=== PATIENT | male | born 1985 | race Caucasian/White ===

== ENCOUNTER 2018-07-11 06:44 | Day surgery (SDC) | payer OTHER, BC ==
--- NOTE | 2018-07-11 07:33 | PCM.PREANE ---
Preanesthetic Assessment - Procedure Proposed Procedure: LEFT leg lesion excision and scar revision - Anesthesia/Transfusion/Family Hx Anesthesia History: No Prior Anesthesia (no history of anesthesia, no previous surgeries or procedures.) Family History of Anesthesia Reaction: No Transfusion History: No Prior Transfusion(s) - Review of Systems General: No Symptoms (obese) Pulmonary: No Symptoms (quit smoking 2011) Cardiovascular: No Symptoms Gastrointestinal: No Symptoms (rare gerd--maybe once a month-uses tums) Neurological: No Symptoms Other: Reports: None - Physical Assessment NPO Status Date: 07/11/18 NPO Status Time: 00:00 Pulse: 69 O2 Sat by Pulse Oximetry: 93 Respiratory Rate: 16 Blood Pressure: 117/59 Temperature: 36.7 C Height: 1.83 m Weight: 109.769 kg ASA Class: 2 Mental Status: Alert & Oriented x3 Airway Class: Mallampati = 1 Dentition: Reports: Normal Dentition Thyro-Mental Finger Breadths: 2 Mouth Opening Finger Breadths: 3 ROM/Head Extension: Full Lungs: Clear to Auscultation, Normal Respiratory Effort Cardiovascular: Regular Rate, Regular Rhythm, No Murmurs - Lab Values: 2016 cbc and cmp were WNL - Allergies Allergies/Adverse Reactions: Allergies Allergy/AdvReac Type Severity Reaction Status Date / Time amoxicillin Allergy Hives Verified 07/05/18 09:16 - Blood Blood Available: No Product(s) Available: None - Acknowledgements Anesthesia Type Planned: General Anesthesia (GA with LMA vs ETT) Pt an Appropriate Candidate for the Planned Anesthesia: Yes Alternatives and Risks of Anesthesia Discussed w Pt/Guardian: Yes Pt/Guardian Understands and Agrees with Anesthesia Plan: Yes PreAnesthesia Questionnaire - Past Health History Medical/Surgical History: Denies Medical/Surgical History HEENT History: Reports: Other (See Below) Other HEENT History: wears contacts Gastrointestinal History: Reports: GERD Musculoskeletal History: Reports: Fracture Other Musculoskeletal History: hx fx hand Psychiatric History: Reports: None Endocrine/Metabolic History: Reports: Obesity/BMI 30+ - Infectious Disease History Infectious Disease History: Reports: Chicken Pox - Past Surgical History Head Surgeries/Procedures: Reports: None - SUBSTANCE USE Smoking Status *Q: Former Smoker Recreational Drug Use History: No - HOME MEDS Home Medications: Home Meds Calcium Carbonate [Tums] 1 tab.chew CHEW ASDIRECTED PRN 07/05/18 [History] - CURRENT (IN HOUSE) MEDS Current Meds: Current Medications Hydrocodone Bitart/Acetaminophen ([place] 325-5 Mg) 1 tab PO Q4H PRN PRN Reason: Pain Bupivacaine HCl/Epinephrine Bitart (Marcaine 0.25%/Epinephrine 1:200,000) 10 ml INJECT ONETIME ONE Stop: 07/11/18 08:01 Clindamycin Phosphate 600 mg/ (Premix) 50 mls @ 150 mls/hr IV ONETIME ONE Stop: 07/11/18 08:19 Last Admin: 07/11/18 07:15 Dose: 150 mls/hr Lactated Ringer's (Ringers, Lactated) 1,000 mls @ 125 mls/hr IV ASDIRECTED [facility] Last Admin: 07/11/18 07:15 Dose: 125 mls/hr
[2018-07-11] MEDS ORDERED: fentaNYL 100 MCG/2 ML SDV ONE (07:39)
[2018-07-11] MEDS ORDERED: Midazolam 1 MG/ML 2 ML SDV ONE (07:39)
[2018-07-11] MEDS ORDERED: Propofol 200 MG/20 ML SDV ONE (07:39)
[2018-07-11] MEDS ORDERED: Lidocaine 2% 5 ML SDV ONE (07:39)
[2018-07-11] MEDS ORDERED: HYDROmorphone 2 MG/ML Syringe ONE (07:39)
[2018-07-11] MEDS ORDERED: Ondansetron 4 MG/2 ML SDV ONE (07:39)
[2018-07-11] MEDS ORDERED: Bupivacaine 25%/EPINEPHrine/PF 30 ML ONE (07:55)
[2018-07-11] MEDS ORDERED: Clindamycin Phosphate in D5W 600 MG in Premix Bag 1 BAG IV ONE ×2 (08:00)
[2018-07-11] MEDS ORDERED: Lactated Ringers 1,000 ML IV SCH (08:00)
[2018-07-11] MEDS ORDERED: Acetaminophen/HYDROcodone 325-5 MG Tab PO PRN (08:00)
[2018-07-11] MEDS ORDERED: Bupivacaine 0.25%/EPINEPHrine 1:200,000 10 ML SDV INJECT ONE (08:00)
[2018-07-11] MEDS ORDERED: fentaNYL 100 MCG/2 ML SDV IVPUSH PRN (08:55)
--- NOTE | 2018-07-11 09:59 | PCM.POSTAN ---
POST ANESTHESIA ASSESSMENT - MENTAL STATUS Mental Status: Alert, Oriented, Somnolent - VITAL SIGNS Pulse Rate: 86 SaO2: 97 Resp Rate: 18 Blood Pressure: 115/47 Temperature: 36.6 C - RESPIRATORY Respiratory Status: Respiratory Rate WNL, Airway Patent, O2 Saturation Stable - CARDIOVASCULAR CV Status: Pulse Rate WNL, Blood Pressure Stable - GASTROINTESTINAL GI Status: No Symptoms - PAIN Pain Score: 6 (tolerable) - POST OP HYDRATION Hydration Status: Adequate & Stable - OBSERVATIONS Free Text/Narrative:: doing well in pacu.
--- NOTE | 2018-07-11 11:33 | PCM48HPAN ---
Post Anesthesia Note - EVALUATION WITHIN 48HRS OF ANESTHETIC Vital Signs in Normal Range: Yes Patient Participated in Evaluation: Yes Respiratory Function Stable: Yes Airway Patent: Yes Cardiovascular Function Stable: Yes Hydration Status Stable: Yes Pain Control Satisfactory: Yes Nausea and Vomiting Control Satisfactory: Yes Pulse Rate: 86 SaO2: 98 Resp Rate: 18 Temperature: 36.6 C Blood Pressure: 115/47 - COMMENTS/OBSERVATIONS Free Text/Narrative:: awake, alert, vitals stable. Eatingand drinking. Doing very well. Ready to go home
[2018-07-11 13:39] VITALS: BP 118/62
--- NOTE | 2018-07-17 07:57 | PCM.OPNOTE ---
- General Post-Op/Procedure Note Date of Surgery/Procedure: 07/11/18 Operative Procedure(s): excision of left leg fat necrosis and scar tissue with evacuation of seroma/old hematoma - total area of excision is 6cm2 Pre Op Diagnosis: left leg traumatic injury sequelae with fat necrosis and scar tissue tethering Post-Op Diagnosis: Same Anesthesia Technique: General ET Tube, Local Primary Surgeon: Cherise Bautista Statistical Geneticist: Lisa Zambrano Drain/Tube Comments:: flat VINNIE in left leg Complications: None Condition: Good Free Text/Narrative:: [id number]
--- NOTE | 2018-07-17 13:53 | OR ---
SURGEON: NESTOR MCCLAIN MD DATE OF PROCEDURE: 07/11/2018 PREOPERATIVE DIAGNOSIS: Left leg traumatic injury sequelae with fat necrosis and scar tissue tethering the muscle. POSTOPERATIVE DIAGNOSIS: Left leg traumatic injury sequelae with fat necrosis and scar tissue tethering the muscle. PROCEDURE: Excision of left leg fat necrosis and release of fat and muscle scar tissue with an activation of an old seroma/hematoma. Total area of excision was 6 cm2. PICKER: BASIL Vasquez REASON FOR AND ROLE OF PICKER: Retraction, prepping, draping, positioning and closure assistance. ANESTHESIA: General ET tube with local. INDICATIONS: Mr. Bruno is a 32-year-old gentleman who unfortunately had a left leg traumatic injury over a year ago at work with unfortunate sequelae of significant fat necrosis with scar tethering to the underlying musculature and chronic irritation here. Risks and benefits of release of the scar tissue attached to the muscle and evacuation or removal of any remaining necrotic or nonviable tissue were discussed with him and he was in agreement to proceed. Risks were including, but not limited to, bleeding, infection, damage to underlying or overlying structures, possible need for future interventions, possible scarring. PROCEDURE IN DETAIL: After informed consent was obtained and placed on the chart, the patient was brought to the operating theater and laid in supine position. The patient was placed in the right lateral decubitus position with a bump under the left thigh, and the area was prepped and draped in normal fashion using ChloraPrep cleansing solution. A transverse incision was made over the area of maximum tethering, and dissection was carried through the skin and subcutaneous tissues to the muscle layer and the muscle was then freed from the overlying fat necrosis and scar tissue. A significant amount of fluid within the old seroma/hematoma was evacuated here and the remainder of the previous scar tissue was completed. This was copiously irrigated and the overlying fat necrosis was then excised for a total area of 6 cm2. Once adequately excised, the edges were appreciated to abruptly end and thus a liposuction cannula was used to see if it is needed for appropriate contour. Once this was adequately debrided and local anesthetic had been infiltrated into the area prior to the liposuction for hemostasis and pain control, the area was copiously irrigated and meticulous hemostasis was obtained. A size 7 VINNIE drain was placed into the wound and brought out the incision itself and sutured in place using a 3-0 Prolene. Once this was completed, a 2-0 PDS Stratafix suture was used to close the deep fascial layer and a 3-0 Monocryl was used to close the deep dermis and the skin in a running fashion with Stratafix suture as well. The wound was dressed with the Steri- Strips and ABD as well as a small compression to close the space and an Rivas wrap. The patient tolerated this well and all counts and needles were correct at the end of the case. FOLLOWUP INSTRUCTIONS: The patient will see us next week once his compression garment has arrived and we will also plan for removal of the VINNIE drain in about 5 to 7 days. In the meantime, he will be on pain control and antibiotics while the drain is in place. Discharge instructions provided. RUDDY FELDMAN /[id number]
== END 2018-07-11 12:35 | disposition home or self-care (01) ==
LOC: MW.SDS 06:44
PROVIDERS: ATTEND Plastic Surgery
DX: M62.89 Other specified disorders of muscle (principal); T14.90XS Injury, unspecified, sequela; M79.89 Other specified soft tissue disorders; E66.9 Obesity, unspecified; Z68.32 Body mass index [BMI] 32.0-32.9, adult; K21.9 Gastro-esophageal reflux disease without esophagitis; Z87.891 Personal history of nicotine dependence; X58.XXXS Exposure to other specified factors, sequela; Z88.0 Allergy status to penicillin; Z88.1 Allergy status to other antibiotic agents
CPT/HCPCS: 10140; 11043; 88304; 99283; A9270; J1170; J2250; J2405; J2704; J3010; J3490; J7120; 00400; 99282

== ENCOUNTER 2018-07-11 17:42 | Emergency (ER) | payer OTHER, BC ==
--- NOTE | 2018-07-11 17:51 | EDM.PDOC ---
ED HPI GENERAL MEDICAL PROBLEM - General Stated Complaint: PORT FROM TODAY'S SURGERY ISN'T DRAINING Time Seen by Provider: 07/11/18 17:43 Source of Information: Reports: Patient History Limitations: Reports: No Limitations - History of Present Illness INITIAL COMMENTS - FREE TEXT/NARRATIVE: History of present illness: []Patient had an excision of fat necrosis and scar tissue from his left leg today by Dr. Bautista. A drain was placed and he comes into the ER stating that his drain is not draining. Review of systems: As per history of present illness and below otherwise all systems reviewed and negative. Past medical history: As per history of present illness and as reviewed below otherwise noncontributory. Surgical history: As per history of present illness and as reviewed below otherwise noncontributory. Social history: No reported history of drug or alcohol abuse. Family history: As per history of present illness and as reviewed below otherwise noncontributory. Physical exam: General: Well developed, well nourished in NAD HEENT: Atraumatic, normocephalic, pupils reactive, negative for conjunctival pallor or scleral icterus, mucous membranes moist, throat clear, neck supple, nontender, trachea midline. Lungs: Clear to auscultation, breath sounds equal bilaterally, chest nontender. Heart: S1S2, regular, negative for clicks, rubs, or JVD. Abdomen: NABS, Soft, nondistended, nontender. Negative for masses or hepatosplenomegaly. Negative for costovertebral tenderness. Pelvis: Stable nontender. Genitourinary: Deferred. Rectal: Deferred. Extremities: Left lateral thigh with drain in place dressing intact and was not taken down there's not excessive amount of blood on the dressing and it is dry. The bulb suction was not compressed. negative for cords or calf pain. Neurovascular unremarkable. Neuro: Awake, alert, oriented. Cranial nerves II through XII unremarkable. Cerebellum unremarkable. Motor and sensory unremarkable throughout. Exam nonfocal. Skin:warm and dry Diagnostics: None Therapeutics: Suction created in the bulb ED Course: Unremarkable Impression: Wound check postoperative Prescriptions: None Plan: Follow-up with Dr. Bautista tomorrow Definitive disposition and diagnosis as appropriate pending reevaluation and review of above. Left Hip Pain Score (Numeric/FACES): 6 - Related Data Allergies Allergy/AdvReac Type Severity Reaction Status Date / Time amoxicillin Allergy Hives Verified 07/11/18 18:08 Home Meds: Home Meds Calcium Carbonate [Tums] 1 tab.chew CHEW ASDIRECTED PRN 07/05/18 [History] Acetaminophen/HYDROcodone [[place] 325-5 MG] 1 tab PO Q4H PRN #30 tablet 07/11/18 [Rx] Past Medical History - Past Health History Medical/Surgical History: Denies Medical/Surgical History HEENT History: Reports: Other (See Below) Other HEENT History: wears contacts Gastrointestinal History: Reports: GERD Musculoskeletal History: Reports: Fracture Other Musculoskeletal History: hx fx hand Psychiatric History: Reports: None Endocrine/Metabolic History: Reports: Obesity/BMI 30+ - Infectious Disease History Infectious Disease History: Reports: Chicken Pox - Past Surgical History Head Surgeries/Procedures: Reports: None Social & Family History - Family History Family Medical History: Noncontributory - Caffeine Use Caffeine Use: Reports: Coffee, Soda, Tea, Other Other Caffeine Use: preworkout ED ROS GENERAL - Review of Systems Review Of Systems: ROS reveals no pertinent complaints other than HPI. ED EXAM, SKIN/RASH Exam: See Below (See history of present illness) Course - Vital Signs Last Recorded V/S: Last Vital Signs Temp 97.2 F 07/11/18 18:05 Pulse 75 07/11/18 18:05 Resp 18 07/11/18 18:05 BP 122/68 07/11/18 18:05 Pulse Ox 98 07/11/18 18:05 Departure - Departure Time of Disposition: 18:16 Disposition: Home, Self-Care 01 Condition: Good Clinical Impression: Encounter for postoperative wound check - Discharge Information *PRESCRIPTION DRUG MONITORING PROGRAM REVIEWED*: No *COPY OF PRESCRIPTION DRUG MONITORING REPORT IN PATIENT KELLY: No Referrals: PCP,None [Primary Care Provider] - Additional Instructions: The following information is given to patients seen in the emergency department who are being discharged to home. This information is to outline your options for follow-up care. We provide all patients seen in our emergency department with a follow-up referral. The need for follow-up, as well as the timing and circumstances, are variable depending upon the specifics of your emergency department visit. If you don't have a primary care physician on staff, we will provide you with a referral. We always advise you to contact your personal physician following an emergency department visit to inform them of the circumstance of the visit and for follow-up with them and/or the need for any referrals to a consulting specialist. The emergency department will also refer you to a specialist when appropriate. This referral assures that you have the opportunity for follow-up care with a specialist. All of these measure are taken in an effort to provide you with optimal care, which includes your follow-up. Under all circumstances we always encourage you to contact your private physician who remains a resource for coordinating your care. When calling for follow-up care, please make the office aware that this follow-up is from your recent emergency room visit. If for any reason you are refused follow-up, please contact the [facility] Emergency Department at and asked to speak to the emergency department charge nurse. [facility] - [facility] Professional Building [address] [place] [address], [address] [place] [address]
[2018-07-11 18:15] VITALS: BP 122/68
== END 2018-07-11 18:36 | disposition home or self-care (01) ==
LOC: MW.ED 17:42
DX: Z48.00 Encounter for change or removal of nonsurgical wound dressing (principal); Z88.1 Allergy status to other antibiotic agents; E66.9 Obesity, unspecified
CPT/HCPCS: 99283

== ENCOUNTER 2018-12-01 16:57 | Emergency (ER) | payer BC, OTHER ==
--- NOTE | 2018-12-01 16:59 | EDM.PDOC ---
ED HPI GENERAL MEDICAL PROBLEM - General Stated Complaint: NECK PAIN Time Seen by Provider: 12/01/18 16:58 Source of Information: Reports: Patient History Limitations: Reports: No Limitations - History of Present Illness INITIAL COMMENTS - FREE TEXT/NARRATIVE: HISTORY AND PHYSICAL: History of present illness: Patient is a 33-year-old male who presents to the emergency room with complaints of muscular neck pain. He states yesterday he was moving heavy furniture and was lifting it up over his head. This morning he woke up with neck stiffness and pain with range of motion. He denies any injury, trauma or falls. Denies any numbness, tingling or saddle paresthesias of the distal extremities. Patient denies any fever, chills, headache, change in vision, syncope or near syncope. Denies any chest pain, back pain, shortness of breath or cough. Denies any abdominal pain, nausea, vomiting, diarrhea, constipation or dysuria. Has not noted any blood in urine or stool. Patient has been eating and drinking appropriately. Review of systems: As per history of present illness and below otherwise all systems reviewed and negative. Past medical history: As per history of present illness and as reviewed below otherwise noncontributory. Surgical history: As per history of present illness and as reviewed below otherwise noncontributory. Social history: See social history for further information Family history: As per history of present illness and as reviewed below otherwise noncontributory. Physical exam: General: Well-developed and well-nourished 30-year-old male. Alert and oriented. Nontoxic appearing and in no acute distress. HEENT: Atraumatic, normocephalic, pupils equal and reactive bilaterally, negative for conjunctival pallor or scleral icterus, mucous membranes moist, TMs normal bilaterally, throat clear, neck supple, nontender, trachea midline. No drooling or trismus noted. No meningeal signs. No hot potato voice noted. Lungs: Clear to auscultation, breath sounds equal bilaterally, chest nontender. Heart: S1S2, regular rate and rhythm without overt murmur Abdomen: Soft, nondistended, nontender. Skin: Intact, warm, dry. No lesions or rashes noted. Extremities: Atraumatic, moves all extremities per self without difficulty or deficits, negative for cords or calf pain. Neurovascular unremarkable. C-spine/Back: No pinpoint vertebral tenderness upon palpation. No crepitus, step -offs or obvious deformities. She does have some paraspinous muscular tenderness into the trapezius bilaterally. Patient is ambulatory into the emergency room without any difficulty or deficits. Denies any urinary or fecal incontinence. Neuro: Awake, alert, oriented. Cranial nerves II through XII unremarkable. Cerebellum unremarkable. Motor and sensory unremarkable throughout. Exam nonfocal. Notes: X-ray shows loss of the normal cervical lordosis which be secondary muscle spasm. No acute bone abnormality seen. Findings were shared with patient. He states he did not get much relief with the IM Toradol and Norflex. One time oral dose of [place] given now. Prescription for Flexeril diclofenac, medication education was reviewed and discussed. Supportive care measures were reviewed and discussed. Voices understanding and is agreeable to plan of care. Denies any further questions or concerns at this time. Diagnostics: C-spine x-ray Therapeutics: Toradol, Norflex, [place] Prescription: Flexeril Diclofenac Impression: Muscle spasm, neck Plan: 1. The medication he received as an injection today does cause drowsiness so do not drive for the remaining day 2. May alternate heat and ice to the painful area. Gentle stretching. 3. Tylenol as needed for back pain. Otherwise take the prescribed Flexeril and diclofenac as directed. Diclofenac is an anti-inflammatory so do not take any additional NSAIDs with this medication, such as ibuprofen or Aleve. Flexeril as a muscle relaxant, this medication may cause drowsiness a do not take it will driving her needing to be functioning outside of the house. 4. Please follow-up with your primary care provider as we discussed. Return to the ED as needed and as discussed. Definitive disposition and diagnosis as appropriate pending reevaluation and review of above. neck Pain Score (Numeric/FACES): 7 - Related Data Allergies Allergy/AdvReac Type Severity Reaction Status Date / Time amoxicillin Allergy Hives Verified 07/11/18 18:08 Home Meds: Home Meds Gabapentin [Neurontin] 100 mg PO BID 12/01/18 [History] Past Medical History - Past Health History Medical/Surgical History: Denies Medical/Surgical History HEENT History: Reports: Other (See Below) Other HEENT History: wears contacts Gastrointestinal History: Reports: GERD Musculoskeletal History: Reports: Fracture Other Musculoskeletal History: hx fx hand Psychiatric History: Reports: None Endocrine/Metabolic History: Reports: Obesity/BMI 30+ - Infectious Disease History Infectious Disease History: Reports: Chicken Pox - Past Surgical History Head Surgeries/Procedures: Reports: None Social & Family History - Family History Family Medical History: Noncontributory - Caffeine Use Caffeine Use: Reports: Coffee, Soda, Tea, Other Other Caffeine Use: preworkout ED ROS GENERAL - Review of Systems Review Of Systems: ROS reveals no pertinent complaints other than HPI. ED EXAM, UPPER BACK/NECK PAIN - Physical Exam Exam: See Below (See dictation) Course - Vital Signs Last Recorded V/S: Last Vital Signs Temp 97 F 12/01/18 17:05 Pulse 88 12/01/18 17:05 Resp 20 12/01/18 17:05 BP 153/83 H 12/01/18 17:05 Pulse Ox 95 12/01/18 17:05 - Orders/Labs/Meds Meds: Medications Discontinued Medications Generic Name Dose Route Start Last Admin Trade Name Freq PRN Reason Stop Dose Admin Ketorolac Tromethamine 60 mg 12/01/18 17:12 12/01/18 17:36 Toradol IM 12/01/18 17:13 60 mg ONETIME ONE Administration Orphenadrine Citrate 60 mg 12/01/18 17:12 12/01/18 17:39 Norflex IM 12/01/18 17:13 60 mg NOW STA Administration Departure - Departure Time of Disposition: 17:45 Disposition: Home, Self-Care 01 Clinical Impression: Muscle spasms of neck - Discharge Information Instructions: Muscle Cramps and Spasms, [id number] Referrals: PCP,None [Primary Care Provider] - Additional Instructions: The following information is given to patients seen in the emergency department who are being discharged to home. This information is to outline your options for follow-up care. We provide all patients seen in our emergency department with a follow-up referral. The need for follow-up, as well as the timing and circumstances, are variable depending upon the specifics of your emergency department visit. If you don't have a primary care physician on staff, we will provide you with a referral. We always advise you to contact your personal physician following an emergency department visit to inform them of the circumstance of the visit and for follow-up with them and/or the need for any referrals to a consulting specialist. The emergency department will also refer you to a specialist when appropriate. This referral assures that you have the opportunity for follow-up care with a specialist. All of these measure are taken in an effort to provide you with optimal care, which includes your follow-up. Under all circumstances we always encourage you to contact your private physician who remains a resource for coordinating your care. When calling for follow-up care, please make the office aware that this follow-up is from your recent emergency room visit. If for any reason you are refused follow-up, please contact the [facility] Emergency Department at and asked to speak to the emergency department charge nurse. [facility] [address] [place] [id number] [facility] [address] [place] [id number] 1. The medication he received as an injection today does cause drowsiness so do not drive for the remaining day 2. May alternate heat and ice to the painful area. Gentle stretching. 3. Tylenol as needed for back pain. Otherwise take the prescribed Flexeril and diclofenac as directed. Diclofenac is an anti-inflammatory so do not take any additional NSAIDs with this medication, such as ibuprofen or Aleve. Flexeril as a muscle relaxant, this medication may cause drowsiness a do not take it will driving her needing to be functioning outside of the house. 4. Please follow-up with your primary care provider as we discussed. Return to the ED as needed and as discussed.
[2018-12-01] MEDS ORDERED: Ketorolac 60 MG/2 ML SDV IM ONE (17:12)
--- NOTE | 2018-12-01 17:42 | CR ---
INDICATION: Neck pain. FINDINGS: AP, lateral and odontoid views of the cervical spine were obtained. There is no acute fracture seen or subluxation. There is loss the normal cervical lordosis which be secondary muscle spasm. IMPRESSION: Loss of the normal cervical lordosis which be secondary muscle spasm. No acute bone abnormality seen. Dictated by Loy Ramsey MD @ 12/01/2018 5:39:48 PM Dictated by: Loy Ramsey MD @ 12/01/2018 17:40:20 (Electronically Signed)
[2018-12-01] MEDS ORDERED: Acetaminophen/HYDROcodone 325-5 MG Tab PO ONE (17:50)
[2018-12-01 18:11] VITALS: BP 123/71
== END 2018-12-01 18:05 | disposition home or self-care (01) ==
LOC: MW.ED 16:57
DX: M62.838 Other muscle spasm (principal); Z88.1 Allergy status to other antibiotic agents; Z79.899 Other long term (current) drug therapy
CPT/HCPCS: 72040; 96372; 99283; A9270; J1885; J2360

== ENCOUNTER 2019-09-22 21:12 | Emergency (ER) | payer BC, OTHER ==
[2019-09-22 21:24] VITALS: BP 144/86; PULSE 78
--- NOTE | 2019-09-22 21:27 | EDM.PDOC ---
ED HPI GENERAL MEDICAL PROBLEM - General Chief Complaint: Lower Extremity Injury/Pain Stated Complaint: INJURED ANKLE Time Seen by Provider: 09/22/19 21:27 Source of Information: Reports: Patient History Limitations: Reports: No Limitations - History of Present Illness INITIAL COMMENTS - FREE TEXT/NARRATIVE: This is a 34-year-old male who presents to the emergency room with a chief complaint of right ankle pain and swelling. Has no history of trauma. Said this happened yesterday. Onset: Today Duration: Day(s): (2) Location: Reports: Lower Extremity, Right Quality: Reports: Throbbing Severity: Mild Improves with: Reports: None Associated Symptoms: Reports: No Other Symptoms - Related Data Allergies Allergy/AdvReac Type Severity Reaction Status Date / Time amoxicillin Allergy Hives Verified 07/11/18 18:08 Home Meds: Home Meds Indomethacin [Indocin] 50 mg PO BID #14 cap 09/22/19 [Rx] Past Medical History - Past Health History Medical/Surgical History: Denies Medical/Surgical History HEENT History: Reports: Other (See Below) Other HEENT History: wears contacts Gastrointestinal History: Reports: GERD Musculoskeletal History: Reports: Fracture Other Musculoskeletal History: hx fx hand Psychiatric History: Reports: None Endocrine/Metabolic History: Reports: Obesity/BMI 30+ - Infectious Disease History Infectious Disease History: Reports: Chicken Pox - Past Surgical History Head Surgeries/Procedures: Reports: None Social & Family History - Family History Family Medical History: Noncontributory - Caffeine Use Caffeine Use: Reports: Coffee, Soda, Tea, Other Other Caffeine Use: preworkout Review of Systems - Review of Systems Review Of Systems: See Below Constitutional: Reports: No Symptoms Eyes: Reports: No Symptoms Ears: Reports: No Symptoms Nose: Reports: No Symptoms Mouth/Throat: Reports: No Symptoms Respiratory: Reports: No Symptoms Cardiovascular: Reports: No Symptoms GI/Abdominal: Reports: No Symptoms Genitourinary: Reports: No Symptoms Musculoskeletal: Reports: Shoulder Pain, Foot Pain Skin: Reports: No Symptoms Neurological: Reports: No Symptoms Psychiatric: Reports: No Symptoms ED EXAM, GENERAL - Physical Exam Exam: See Below Exam Limited By: No Limitations General Appearance: Alert, WD/WN, No Apparent Distress Eye Exam: Bilateral Eye: Normal Fundi, Normal Inspection, PERRL Ear Exam: Bilateral Ear: Auricle Normal Nose: Normal Inspection, Normal Mucosa Throat/Mouth: Normal Inspection, Normal Lips, Normal Oropharynx, Normal Voice Head: Atraumatic, Normocephalic Neck: Normal Inspection, Supple, Non-Tender Respiratory/Chest: No Respiratory Distress Cardiovascular: Normal Peripheral Pulses (Male) Exam: No Hernia, Normal Inspection, Deferred Rectal (Males) Exam: Deferred Extremities: Other (The right ankle joint swelling with good range of motion. No pain) Neurological: Alert Psychiatric: Normal Affect Skin Exam: Warm, Dry Course - Vital Signs Last Recorded V/S: Last Vital Signs Temp 96.9 F 09/22/19 21: Pulse 78 09/22/19 21:22 Resp 16 09/22/19 21: BP 144/86 H 09/22/19 21: Pulse Ox 96 09/22/19 21: - Orders/Labs/Meds Meds: Medications Discontinued Medications Generic Name Dose Route Start Last Admin Trade Name Freq PRN Reason Stop Dose Admin Ketorolac Tromethamine 30 mg 09/22/19 21:36 Toradol IM 09/22/19 21:37 ONETIME ONE Departure - Departure Time of Disposition: 21:40 Disposition: Home, Self-Care 01 Condition: Good Clinical Impression: Gout attack - Discharge Information Prescriptions: Indomethacin [Indocin] 50 mg PO BID #14 cap Instructions: Low-Purine Eating Plan Referrals: PCP,None [Primary Care Provider] - Forms: ED Department Discharge Additional Instructions: Take your medicine as prescribed. Follow-up with your primary care physician. Return for any problems Sepsis Event Note - Focused Exam Vital Signs: Vital Signs Temp Pulse Resp BP Pulse Ox 09/22/19 21:22 96.9 F 78 16 144/86 H 96 Date Exam was Performed: 09/22/19 Time Exam was Performed: 21:39
[2019-09-22] MEDS ORDERED: Ketorolac 30 MG/ML SDV IM ONE (21:36)
== END 2019-09-22 22:10 | disposition home or self-care (01) ==
LOC: MW.ED 21:12
DX: M10.9 Gout, unspecified (principal); E66.9 Obesity, unspecified; Z68.33 Body mass index [BMI] 33.0-33.9, adult
CPT/HCPCS: 96372; 99283; J1885; 99282

== ENCOUNTER 2021-06-08 03:28 | Emergency (ER) | payer OTHER ==
[2021-06-08] MEDS ORDERED: Ketorolac 30 MG/ML SDV IM STA (04:03)
--- NOTE | 2021-06-08 04:05 | EDM.PDOC ---
ED HPI GENERAL MEDICAL PROBLEM - General Chief Complaint: Fever Stated Complaint: FEVER, TOOTH PAIN Time Seen by Provider: 06/08/21 03:54 - History of Present Illness INITIAL COMMENTS - FREE TEXT/NARRATIVE: CHIEF COMPLAINT(S): Fever HISTORY OF PRESENT ILLNESS: This is a 35-year-old man with a known dental abscess on antibiotics who comes to the emergency department with a chief complaint of fever. The patient states that he has been dealing with this since December. He states that he had a dental abscess and then missed the dental appointment. He states that he went to his dentist said he was started on clindamycin and Flagyl yesterday. He states that his pain is controlled however he developed a fever and his girlfriend made him come to the emergency department. He denies any neck pain or stiffness. He denies any headache. He denies any ear pain but states that he does have pain along the jaw where his dental abscess is. He denies any stridor, drooling or trismus. He denies any trouble swallowing or shortness of breath. He denies any cough, runny nose, congestion, abdominal pain, nausea or vomiting. He denies any chest pain REVIEW OF SYSTEMS: Constitutional: Positive for fever Eyes: Denies eye pain Ears, Nose, Mouth, & Throat: Positive for right wisdom tooth pain Cardiovascular: Denies chest pain Respiratory: Denies shortness of breath Gastrointestinal: Denies Nausea, vomiting, diarrhea, hematochezia. Genitourinary: Denies hematuria Skin:Denies a rash MSK: Denies joint pain Neurological: Denies blurred vision, double vision, headache, numbness, tingling, weakness Psychiatric: Denies depression PAST MEDICAL HISTORY: As per history of present illness and as reviewed below otherwise noncontributory. SURGICAL HISTORY: As per history of present illness and as reviewed below otherwise noncontributory. SOCIAL HISTORY: As per history of present illness and as reviewed below otherwise noncontributory. FAMILY HISTORY: As per history of present illness and as reviewed below otherwise noncontributory. EXAMINATION OF ORGAN SYSTEMS/BODY AREAS: Constitutional: Heart rate 120, respiratory rate 22 with an oxygen saturation 96% on room air. Temperature 38.8 orally. General: Well-appearing man who is in no acute distress Psychiatric: Appropriate mood and affect. Eyes: No scleral icterus or conjunctival erythema ENMT: Moist mucous membranes. No pharyngeal erythema no stridor, drooling, trismus. Right upper posterior molar does not have any evidence of dental carry and there is no evidence of any periapical abscess. This area is mildly tender to palpation. Tonsillar pillars without any exudates or swelling. Cardiovascular: Tachycardic but regular. No gallops, murmurs, or rubs. Bilateral upper extremity pulses symmetric and intact. No peripheral edema. No JVD. Respiratory: Lungs clear to auscultation bilaterally. No wheezes, rales, or rhonchi. Gastrointestinal: Soft, non-tender, non-distended. Normoactive bowel sounds Genitourinary: No suprapubic tenderness Musculoskeletal: Normal range of motion. Skin: No lesions or abrasions. Neurological: Alert, GCS 15 strength and sensation grossly intact in upper and lower extremities bilaterally. No meningeal signs MEDICAL DECISION MAKING AND COURSE IN THE ED WITH INTERPRETATION/REVIEW OF DIAGNOSTIC STUDIES: This is a 35-year-old man with a past medical history of dental abscess on antibiotic who comes to the emergency department with fever who is mildly tachycardic. At this time the patient appears nontoxic and has no red flag symptoms. The patient is already on his appropriate antibiotic regimen. I offered viral studies. Patient declined. He has an appointment scheduled this week with his dentist. I encourage the patient to use Tylenol and Motrin for fever and antipyretic relief. I do believe his tachycardia is likely secondary to his fever and his anxiety of being here. He was not on his way to the emergency department other than his significant other making him come in. I discussed strict return precautions with the patient. He was amenable to discharge at this time and had no further questions. We will provide him with Toradol for antipyretic and pain relief DISPOSITION: The patient was discharged home in stable condition. The patient will follow up with dentist at his scheduled appointment CONDITION:Fair PROCEDURES: None FINAL IMPRESSION(S)/DIAGNOSES: 1. Acute fever Reed Quigley M.D. Right Lower Jaw Pain Score (Numeric/FACES): 4 - Related Data Allergies Allergy/AdvReac Type Severity Reaction Status Date / Time amoxicillin Allergy Hives Verified 07/11/18 18:08 Home Meds: Home Meds Acetaminophen [Tylenol Extra Strength] 1,000 mg PO PRN 06/08/21 [History] Baclofen 20 mg PO TID 06/08/21 [History] Clindamycin HCl 300 mg PO TID 06/08/21 [History] Ibuprofen [Advil] 400 mg PO PRN 06/08/21 [History] Loratadine [Claritin] 10 mg PO BEDTIME 06/08/21 [History] Naltrexone 4 mg PO BEDTIME 06/08/21 [History] metroNIDAZOLE [Flagyl] 500 mg PO TID 06/08/21 [History] Past Medical History - Past Health History Medical/Surgical History: Denies Medical/Surgical History HEENT History: Reports: Other (See Below) Other HEENT History: wears contacts Gastrointestinal History: Reports: GERD Musculoskeletal History: Reports: Fracture Other Musculoskeletal History: hx fx hand Psychiatric History: Reports: None Endocrine/Metabolic History: Reports: Obesity/BMI 30+ - Infectious Disease History Infectious Disease History: Reports: Chicken Pox - Past Surgical History Head Surgeries/Procedures: Reports: None Social & Family History - Family History Family Medical History: No Pertinent Family History - Caffeine Use Caffeine Use: Reports: Coffee, Soda, Tea, Other Other Caffeine Use: preworkout ED ROS GENERAL - Review of Systems Review Of Systems: See Below ED EXAM, GENERAL - Physical Exam Exam: See Below Course - Vital Signs Last Recorded V/S: Last Vital Signs Temp 38.8 C H 06/08/21 04:05 Pulse 120 H 06/08/21 04:05 Resp 22 H 06/08/21 04:05 BP 128/69 06/08/21 04:05 Pulse Ox 96 06/08/21 04:05 - Orders/Labs/Meds Meds: Medications Discontinued Medications Generic Name Dose Route Start Last Admin Trade Name Liam PRN Reason Stop Dose Admin Ketorolac Tromethamine 30 mg 06/08/21 04:03 06/08/21 04:10 Ketorolac 30 Mg/Ml Sdv IM 06/08/21 04:04 30 mg ONETIME STA Administration Departure - Departure Time of Disposition: 04:04 Disposition: Home, Self-Care 01 Condition: Fair Clinical Impression: Dental abscess, Fever - Discharge Information *PRESCRIPTION DRUG MONITORING PROGRAM REVIEWED*: No *COPY OF PRESCRIPTION DRUG MONITORING REPORT IN PATIENT KELLY: No Instructions: Dental Abscess, [id number], Fever, Adult, [id number] Referrals: Alfredo Butcher MD [Primary Care Provider] - Forms: ED Department Discharge Additional Instructions: Your evaluated today on an emergent basis. At this time he did have a fever however your vital signs were otherwise other than mild elevation in your heart rate likely secondary to the fever and you being in the emergency department. He did not appear toxic or ill-appearing I do recommend that you continue the antibiotics that your dentist prescribed you and keep the appointment with your dentist this week as this has been a longstanding issue. If you have any worsening symptoms such as inability to open mouth, worsening fever, trouble breathing or swallowing I had like you to return to the emergency department. Please use Tylenol and Motrin as described below for fever and pain relief Please use: Tylenol 500-1000mg every 6 hours (DO NOT TAKE MORE THAN 4000mg in 1 day) Ibuprofen 400mg every 6 hours (Take with food as it can cause ulcers, GI upset) Example schedule: 8:00 AM (Tylenol 500-1000mg) 11:00 AM (Ibuprofen 400mg) 2:00 PM (Tylenol 500-1000mg) 5:00 PM (Ibuprofen 400mg) The patient is informed of any results of their evaluation and diagnostic workup and all questions are answered. They are given discharge instructions and return precautions. The patient is stable for discharge. The patient states they understand and agree with the plan and that they will return if their symptoms get worse or if they have any new concerns. The following information is given to patients seen in the emergency department who are being discharged to home. This information is to outline your options for follow-up care. We provide all patients seen in our emergency department with a follow-up referral. The need for follow-up, as well as the timing and circumstances, are variable depending upon the specifics of your emergency department visit. If you don't have a primary care physician on staff, we will provide you with a referral. We always advise you to contact your personal physician following an emergency department visit to inform them of the circumstance of the visit and for follow-up with them and/or the need for any referrals to a consulting specialist. The emergency department will also refer you to a specialist when appropriate. This referral assures that you have the opportunity for follow-up care with a specialist. All of these measure are taken in an effort to provide you with optimal care, which includes your follow-up. Under all circumstances we always encourage you to contact your private physician who remains a resource for coordinating your care. When calling for follow-up care, please make the office aware that this follow-up is from your recent emergency room visit. If for any reason you are refused follow-up, please contact the [facility] Emergency Department at and asked to speak to the emergency department charge nurse.
[2021-06-08 04:06] VITALS: BP 128/69; PULSE 120
== END 2021-06-08 04:38 | disposition home or self-care (01) ==
LOC: MW.ED 03:28
DX: K04.7 Periapical abscess without sinus (principal); R50.9 Fever, unspecified; E66.9 Obesity, unspecified; Z88.0 Allergy status to penicillin; Z68.30 Body mass index [BMI] 30.0-30.9, adult
CPT/HCPCS: 96372; 99283; J1885

== ENCOUNTER 2023-07-28 21:35 | Emergency (ER) | payer OTHER, MEDICAID ==
[2023-07-28] MEDS ORDERED: Sodium Chloride 0.9% 2.5 ML Syringe FLUSH PRN (23:02)
[2023-07-28] MEDS ORDERED: Sodium Chloride 0.9% 10 ML Syringe FLUSH PRN (23:02)
[2023-07-28] MEDS ORDERED: Iopamidol 755 MG/ML 500 ML Multipack Bottle IVPUSH ONE (23:36)
[2023-07-28 23:38] LABS: BASOPHILS ABSOLUTE AUTO 0.08 K/uL (0.00-0.20); BASOPHILS PERCENT AUTO 0.8 % (0.0-1.0); EOSINOPHILS ABSOLUTE AUTO 0.21 K/uL (0.00-0.45); EOSINOPHILS PERCENT AUTO 2.2 % (0.0-6.0); HEMATOCRIT 47.4 % (42.0-52.0); HEMOGLOBIN 16.4 g/dL (14.0-18.0); IMMATURE GRAN ABSOLUTE AUTO 0.02 K/uL (0.00-0.05); IMMATURE GRAN PERCENT AUTO 0.2 % (0.0-0.4); LYMPHOCYTES ABSOLUTE AUTO 2.47 K/uL (1.00-4.80); LYMPHOCYTES PERCENT AUTO 25.4 % (24.0-44.0); MEAN CORPUSCULAR HEMOGLOBIN 29.5 pg (28.0-32.0); MEAN CORPUSCULAR HGB CONC 34.6 g/dL (32.0-36.0); MEAN CORPUSCULAR VOLUME 85.4 fL (83.0-99.0); MEAN PLATELET VOLUME 9.8 fL (9.4-12.4); MONOCYTES ABSOLUTE AUTO 0.81 K/uL (0.00-0.80); MONOCYTES PERCENT AUTO 8.3 % (0.0-8.0); NEUTROPHILS ABSOLUTE AUTO 6.12 K/uL (1.80-7.70); NEUTROPHILS PERCENT AUTO 63.1 % (41.0-71.0); PLATELET COUNT,PLT 280 K/uL (150-400); RED BLOOD CELL COUNT 5.55 M/uL (4.52-5.90); WHITE BLOOD CELL COUNT,WBC 9.71 K/uL (3.9-11.3)
[2023-07-28] MEDS ORDERED: Ondansetron 4 MG/2 ML SDV IVPUSH ONE (23:48)
[2023-07-29 00:04] LABS: A/G RATIO 1.2 (0.9-1.6); ALBUMIN 4.1 g/dL (3.4-5.0); BILIRUBIN TOTAL 0.6 mg/dL (0.2-1.0); CALCIUM 8.9 mg/dL (8.5-10.1); CARBON DIOXIDE,CO2 22.5 mmol/L (21.0-32.0); CREATININE 1.1 mg/dL (0.8-1.3); EST CRCL DRUG DOSING (CG) 100.92 mL/min; PROTEIN TOTAL,TP 7.4 g/dL (6.4-8.2)
[2023-07-29] MEDS ORDERED: Cyclobenzaprine 10 MG Tab PO ONE (00:29)
[2023-07-29] MEDS ORDERED: Ibuprofen 800 MG Tab PO ONE (00:29)
[2023-07-29 05:39] VITALS: BP 123/87; PULSE 81
== END 2023-07-29 02:08 | disposition home or self-care (01) ==
LOC: MW.ED 21:35
DX: M54.6 Pain in thoracic spine (principal); E66.9 Obesity, unspecified; Z79.899 Other long term (current) drug therapy; Z88.0 Allergy status to penicillin; Z68.33 Body mass index [BMI] 33.0-33.9, adult; V49.49XA Driver injured in collision with other motor vehicles in traffic accident, initial encounter; Y92.410 Unspecified street and highway as the place of occurrence of the external cause
CPT/HCPCS: 36415; 70450; 71260; 72125; 74177; 80053; 85025; 96374; 99284; A9270; J2405; J3490; Q9967

== ENCOUNTER 2024-01-06 23:26 | Emergency (ER) | payer OTHER, MEDICAID ==
[2024-01-06 23:53] VITALS: BP 155/93; PULSE 78
[2024-01-07] MEDS: Diphtheria,Pertussis(Acell),Tetanus Vaccine 0.5 ML Syringe IM ONE (00:48)
[2024-01-07] MEDS: Ibuprofen 600 MG Tab PO ONE (00:48)
[2024-01-07] MEDS: Bacitracin Oint 1 GM U/D Packet TOP ONE (00:48)
== END 2024-01-07 01:10 | disposition home or self-care (01) ==
LOC: MW.ED 23:26
DX: T23.242A Burn of second degree of multiple left fingers (nail), including thumb, initial encounter (principal); E66.9 Obesity, unspecified; Z23 Encounter for immunization; Z79.899 Other long term (current) drug therapy; Z68.35 Body mass index [BMI] 35.0-35.9, adult; Z88.0 Allergy status to penicillin; X08.8XXA Exposure to other specified smoke, fire and flames, initial encounter
CPT/HCPCS: 16020; 90471; 90715; 99283; A9270; 99282